=== PATIENT | male | born 1955 | race Caucasian/White ===

== ENCOUNTER 2018-11-28 17:04 | Emergency (ER) | payer OTHER ==
[~2018-11-28] VITALS: Ht 185.4 cm; Wt 77.3 kg
[2018-11-28] MEDS ORDERED: OFLO35OS OS (17:20)
[2018-11-28] MEDS ORDERED: ACET1TAB12 PO (17:20)
[2018-11-28] MEDS ORDERED: ERYTHROMYCIN OS (17:20)
[2018-11-28] MEDS ORDERED: ERYT3.5O8 OS (17:22)
[2018-11-28 17:32] LABS: GLUCOSE,POINT OF CARE 113 MG/DL (70-110)
[2018-11-28] MEDS ORDERED: PROPARACAINE HCL 0.5% 15 ML OPHTHALMIC SOLUTION OU ONE (21:00)
[2018-11-28 21:06] VITALS: BP 140/85
== END 2018-11-28 21:56 | disposition home or self-care (01) ==
LOC: EMS 17:05
DX: H10.9 Unspecified conjunctivitis (principal); F17.210 Nicotine dependence, cigarettes, uncomplicated; E11.9 Type 2 diabetes mellitus without complications; E78.00 Pure hypercholesterolemia, unspecified; I10 Essential (primary) hypertension; I25.2 Old myocardial infarction; Z91.030 Bee allergy status
CPT/HCPCS: 99406

== ENCOUNTER 2018-12-02 10:17 | Emergency (ER) | payer OTHER ==
[~2018-12-02] VITALS: Ht 188 cm; Wt 104.5 kg
[~2018-12-02 10:17] MED LIST: ACET1TAB12 PO; ERYT3.5O8 OS; OFLO35OS OS
[2018-12-02 10:20] VITALS: BP 158/93
[2018-12-02] MEDS ORDERED: [UNRECOGNIZED DRUG - CODE] OS (10:27)
[2018-12-02] MEDS ORDERED: ATRO10DR OS (10:27)
[2018-12-02 10:41] LABS: GLUCOSE,POINT OF CARE 110 MG/DL (70-110)
[2018-12-02] MEDS ORDERED: MOXI3DRO12 OS (11:26)
[2018-12-02] MEDS ORDERED: ATRO2DRO OS (11:26)
[2018-12-02] MEDS ORDERED: TOBRAMYCIN/DEXAMETHASONE 5 ML OPHTHALMIC SUSPENSION OS ONE (11:30)
[2018-12-02] MEDS ORDERED: PROPARACAINE HCL 0.5% 15 ML OPHTHALMIC SOLUTION OS ONE (11:30)
[2018-12-02] MEDS ORDERED: ACETAMINOPHEN/CODEINE 300-30 MG TABLET PO ONE (12:45)
== END 2018-12-02 12:35 | disposition home or self-care (01) ==
LOC: EMS 10:20
DX: H10.9 Unspecified conjunctivitis (principal); E11.9 Type 2 diabetes mellitus without complications; E78.00 Pure hypercholesterolemia, unspecified; I10 Essential (primary) hypertension; I25.2 Old myocardial infarction; F17.210 Nicotine dependence, cigarettes, uncomplicated; Z91.030 Bee allergy status